=== PATIENT | female | born 1970 | race Two or more races ===

== ENCOUNTER 2017-10-02 05:25 | Day surgery (SDC) | payer BC ==
[2017-09-26 09:31] VITALS: BMI 23.9
[2017-10-02] MEDS ORDERED: CEFAZOLIN/Water 2 GM/20 ML SYRINGE ONE (06:11)
[2017-10-02] MEDS ORDERED: Fentanyl 100 MCG/2 ML VIAL ONE ×2 (06:47)
[2017-10-02] MEDS ORDERED: Bupivacaine/Epinephrine 0.25% 30 ML VIAL ONE (07:04)
[2017-10-02] MEDS ORDERED: Midazolam HCl 2 mg/2 ml Vial ONE (07:11)
[2017-10-02] MEDS ORDERED: Scopolamine 1.5 mg/72 hour Patch ONE (07:11)
[2017-10-02] MEDS ORDERED: Ketorolac Tromethamine 30 MG/ML VIAL ONE (07:20)
[2017-10-02] MEDS ORDERED: Dexamethasone 20 MG/5 ML VIAL ONE (07:20)
[2017-10-02] MEDS ORDERED: PHENYLEPHRINE-NS 100 MCG/ML 10 ML SYRINGE ONE (07:20)
[2017-10-02] MEDS ORDERED: Lidocaine 2% PF 10 ML AMP (For Epidural Use) ONE (07:20)
[2017-10-02] MEDS ORDERED: Glycopyrrolate 0.2 MG/ML 5 ML SYRINGE ONE (07:20)
[2017-10-02] MEDS ORDERED: Ondansetron HCl/PF 4 MG/2 ML Vial ONE (07:20)
[2017-10-02] MEDS ORDERED: Propofol 200 MG/20 ML VIAL ONE (07:20)
[2017-10-02] MEDS ORDERED: Metoclopramide HCl 10 MG/2 ML VIAL ONE (07:20)
[2017-10-02] MEDS ORDERED: Lidocaine 2% w/Epinephrine 1:200K 20 ML VIAL ONE ×2 (08:33→08:46)
--- NOTE | 2017-10-03 11:01 | OP ---
DATE OF SERVICE: 10/02/2017 PREOPERATIVE DIAGNOSIS: Right inguinal hernia. POSTOPERATIVE DIAGNOSIS: Right inguinal hernia. PROCEDURE: Right inguinal hernia repair with mesh, da Hemalatha laparoscopic. SURGEON: Abimael Khalil M.D. ANESTHESIA: General. ESTIMATED BLOOD LOSS: Minimal. COMPLICATIONS: None. SPECIMEN: None. FINDINGS: Indirect right inguinal hernia. TECHNIQUE: The patient was taken to the operating room and placed supine on the table. After genera l anesthetic, a Montoya was placed. The abdomen was shaved, prepped and draped in a sterile fashion. Curved incision was made above the umbilicus. Cautery was used to dissect down to and score the fasc ia. Abdominal cavity was entered bluntly using a Jaimie clamp. A 12 mm trocar was placed. High-flow pneumoperitoneum was obtained. Left and right abdominal 8 mm robot trocars were placed. All ports were docked to the robot. The peritoneum was taken down before the right groin. Dissection was perf ormed in the preperitoneal space on the right, all the way down to the pubic tubercle medially and to the anterior superior iliac crest laterally. Iliopectineal line was exposed. Indirect hernia sac d issected out the indirect defect high up onto the peritoneum. There was no direct defect. A 3DMax m edium mesh was brought into the sterile field. The end-labelled medial aspect was placed over the pu bic tubercle medially. The mesh was laid out laterally to cover the direct, indirect and femoral are as. A 2-0 Vicryl was used to affix the mesh to the pubic tubercle medially and to the posterior fasci a laterally. A 2-0 Stratafix was used to reapproximate the peritoneum. All needles were removed from the abdomen. All port sites were infiltrated using local anesthetic. All ports were removed under camera visualization. Pneumoperitoneum was let down. PDS was used to close the fascial defect above the umbilicus. All incisions were irrigated and closed using 4-0 Monocryl and Dermabond. The patie nt was en route to recovery in stable condition. All instrument counts, needle counts, and lap count s were correct.
== END 2017-10-02 12:10 | disposition home or self-care (01) ==
LOC: SDC 05:25
PROVIDERS: ATTEND Surgery
PROC: 0YU54JZ Supplement Right Inguinal Region with Synthetic Substitute, Percutaneous Endoscopic Approach (ICD-10-PCS; principal; 2017-10-02)
DX: K40.90 Unilateral inguinal hernia, without obstruction or gangrene, not specified as recurrent (principal); N39.3 Stress incontinence (female) (male); E11.9 Type 2 diabetes mellitus without complications; K76.0 Fatty (change of) liver, not elsewhere classified; E03.9 Hypothyroidism, unspecified; Z88.2 Allergy status to sulfonamides; Z88.8 Allergy status to other drugs, medicaments and biological substances; Z91.09 Other allergy status, other than to drugs and biological substances; Z98.51 Tubal ligation status; Z90.710 Acquired absence of both cervix and uterus; Z90.49 Acquired absence of other specified parts of digestive tract; Z87.891 Personal history of nicotine dependence; Z82.49 Family history of ischemic heart disease and other diseases of the circulatory system; Z83.3 Family history of diabetes mellitus
CPT/HCPCS: S2900; C1781; J0131; J1100; J1885; J2001; J2250; J2405; J2704; J2765; J3010

== ENCOUNTER 2021-09-03 15:38 | Emergency (ER) | payer BC ==
[2021-09-03 16:40] LABS: #Eosinphils 0.2 thou/uL (0.0-0.7); #Lymphocytes 2.3 thou/uL (1.20-3.40); #Monocytes 0.4 thou/uL (0.11-0.59); #Neutrophils 5.9 thou/uL (1.40-6.50); %Basophils 0.3 % (0.0-1.0); %Eosinophils 2.1 % (0.0-10.0); %Lymphocytes 26.4 % (21.0-51.0); %Monocytes 4.3 % (0.0-10.0); %Neutrophils 66.9 % (42.0-75.0); Hemoglobin 8.9 g/dL (12.0-16.0); Mean Corpuscular HGB CONC 34.3 g/dL (32.0-36.0); Mean Corpuscular Hemoglobin 30.8 pg (27.0-31.0); Mean Platelet Volume 5.3 fL (7.4-10.4); Platelet Count 670 thou/uL (130-400); Red Blood Cell (RBC) Count 2.89 mill/uL (4.20-5.40); White Blood Cell (WBC) Count 8.8 thou/uL (4.8-10.8)
[2021-09-03 17:54] LABS: ALT (SGPT) 20 U/L (8-55); AST (SGOT) 27 U/L (5-34); Albumin 3.8 g/dL (3.5-5.0); Alkaline Phosphatase 48 U/L (40-110); Anion Gap 15 mmol/L (10-20); BUN (Urea Nitrogen) 10 mg/dL (9.8-20.1); Bilirubin, Total 0.5 mg/dL (0.2-1.2); Calc. Creatinine Clearance 0 mL/min (70-130); Carbon Dioxide 21 mmol/L (22-29); Chloride 104 mmol/L (98-107); Globulin 2.5 g/dL (2.4-3.5); Glucose 97 mg/dL (70-105); Potassium 3.9 mmol/L (3.5-5.1); Protein, Total 6.3 g/dL (6.0-8.3); Sodium 136 mmol/L (136-145)
== END 2021-09-03 18:21 | disposition left against medical advice (07) ==
LOC: ERS 15:38
DX: Z53.21 Procedure and treatment not carried out due to patient leaving prior to being seen by health care provider (principal)
CPT/HCPCS: 36415; 71045; 80053; 84484; 85025; 93005

== ENCOUNTER 2022-12-26 23:20 | Emergency (ER) | payer BC ==
[2022-12-26 23:58] LABS: #Eosinphils 0.1 thou/uL (0.0-0.7); #Lymphocytes 1.7 thou/uL (1.20-3.40); #Monocytes 0.3 thou/uL (0.11-0.59); #Neutrophils 5.3 thou/uL (1.40-6.50); %Basophils 0.1 % (0.0-1.0); %Eosinophils 0.7 % (0.0-10.0); %Lymphocytes 22.6 % (21.0-51.0); %Monocytes 3.8 % (0.0-10.0); %Neutrophils 72.7 % (42.0-75.0); Hemoglobin 10.8 g/dL (12.0-16.0); Mean Corpuscular HGB CONC 33.8 g/dL (32.0-36.0); Mean Corpuscular Hemoglobin 26.5 pg (27.0-31.0); Mean Corpuscular Volume 78.4 fl (78.0-98.0); Mean Platelet Volume 6.7 fL (7.4-10.4); Platelet Count 387 10x3/uL (130-400); RBC Distribution Width 14.2 % (11.5-14.5); Red Blood Cell (RBC) Count 4.07 mill/uL (4.20-5.40); White Blood Cell (WBC) Count 7.3 10x3/uL (4.8-10.8)
[2022-12-27 00:17] LABS: Phosphorus 2.9 mg/dL (2.3-4.7)
[2022-12-27 00:18] LABS: ALT (SGPT) 57 U/L (8-55); AST (SGOT) 34 U/L (5-34); Albumin 4.3 g/dL (3.5-5.0); Alkaline Phosphatase 73 U/L (40-110); Anion Gap 16 mmol/L (10-20); BUN (Urea Nitrogen) 18 mg/dL (9.8-20.1); Bilirubin, Total 0.3 mg/dL (0.2-1.2); Calc. Creatinine Clearance 0 mL/min (70-130); Calcium 10.1 mg/dL (7.8-10.44); Carbon Dioxide 21 mmol/L (22-29); Chloride 99 mmol/L (98-107); Estimated GFR 87; Globulin 3.6 g/dL (2.4-3.5); Glucose 336 mg/dL (70-105); Magnesium 1.7 mg/dL (1.6-2.6); Potassium 4.2 mmol/L (3.5-5.1); Protein, Total 7.9 g/dL (6.0-8.3); Sodium 132 mmol/L (136-145)
[2022-12-27] MEDS ORDERED: Aspirin Chewable 81 MG TAB ONE (01:15)
== END 2022-12-27 03:25 | disposition home or self-care (01) ==
LOC: ERS 23:20
DX: E11.65 Type 2 diabetes mellitus with hyperglycemia (principal); R07.89 Other chest pain; E03.9 Hypothyroidism, unspecified; K21.9 Gastro-esophageal reflux disease without esophagitis
CPT/HCPCS: 36415; 36416; 71045; 80053; 83735; 83880; 84100; 84484; 85025; 93005